=== PATIENT | male | born 1965 | race Caucasian/White ===

== ENCOUNTER 2022-03-28 17:28 | Emergency (ER) | payer MEDICARE, MEDICAID ==
[2022-03-28] MEDS ORDERED: Acetaminophen 500 MG Tab PO ONE (18:15)
[2022-03-28 18:43] LABS: ANION GAP 14.4 mmol/L (5-15); CHLORIDE,CL 96 mmol/L (98-107); SODIUM,NA 133 mmol/L (136-145)
[2022-03-28] MEDS ORDERED: Azithromycin 250 MG Tab PO ONE (19:08)
== END 2022-03-28 19:25 | disposition home or self-care (01) ==
LOC: KA.ED 17:28
DX: J06.9 Acute upper respiratory infection, unspecified (principal)
CPT/HCPCS: 36415; 71046; 80048; 85025; 99283; 99283-25; A9270-GY